=== PATIENT | male | born 1990 | race African-American/Black ===

== ENCOUNTER 2019-08-16 19:14 | Emergency (ER) | payer MEDICARE, MEDICAID ==
[~2019-08-16] VITALS: Ht 175.3 cm; Wt 68.9 kg
[2019-08-16] MEDS ORDERED: ZYPREXA7.5 MG ORAL (19:21)
[2019-08-16] MEDS ORDERED: Ketorolac 30mg Inj IM ONE (19:30)
[2019-08-16] MEDS ORDERED: Methocarbamol 750mg tab ORAL ONE (19:30)
[2019-08-16 19:31] VITALS: BP 122/71
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
[2019-08-16] MEDS ORDERED: IBUPROFEN600 MG ORAL (20:09)
[2019-08-16] MEDS ORDERED: ROBAXIN-500MG ORAL (20:09)
[2019-08-16] MEDS ORDERED: LIDODERM700 M1 TOPIC (20:09)
[2019-08-16 20:20] VITALS: BP 122/71
== END 2019-08-16 20:20 | disposition home or self-care (01) ==
LOC: EMR 19:32
DX: S29.012A Strain of muscle and tendon of back wall of thorax, initial encounter (principal); S16.1XXA Strain of muscle, fascia and tendon at neck level, initial encounter; V43.52XA Car driver injured in collision with other type car in traffic accident, initial encounter; Y93.9 Activity, unspecified; Y92.411 Interstate highway as the place of occurrence of the external cause
CPT/HCPCS: 71045; 72070; 96372; 99284; J1885